=== PATIENT | male | born 1975 | race Caucasian/White ===

== ENCOUNTER → 2017-12-21 | Outpatient (CLI) | payer OTHER ==
--- NOTE | 2017-12-21 10:27 | Diagnostic Imaging Report ---
PROCEDURE: US abdomen complete. TECHNIQUE: Multiple real-time grayscale images were obtained over the abdomen in various projections. INDICATION: Abdominal fullness. FINDINGS: The liver is enlarged at 19.0 cm. No discrete liver mass is detected. The gallbladder is without stones or sludge. No wall thickening or pericholecystic fluid is identified. No biliary ductal dilatation is seen. The pancreas is obscured by bowel gas. Spleen is normal in size. Aorta is nonaneurysmal. IVC is unremarkable. The right and left kidneys are unremarkable. No calculi or hydronephrosis is seen. There is no ascites. IMPRESSION: Mild hepatomegaly. The study is otherwise unremarkable. Dictated by: Dictated on workstation # [id number]
== END ==
LOC: RAD 08:25
PROVIDERS: ATTEND Nurse Practitioner Family
DX: R16.0 Hepatomegaly, not elsewhere classified (principal)
CPT/HCPCS: 76700

== ENCOUNTER → 2020-08-13 | Outpatient (CLI) | payer SELFPAY ==
--- NOTE | 2020-08-13 12:22 | Diagnostic Imaging Report ---
PROCEDURE: US Renal Bilateral. TECHNIQUE: Multiple real-time grayscale images were obtained over the kidneys in various projections bilaterally. INDICATION: Chronic kidney disease, stage G4/A3 COMPARISON: Abdominal ultrasound of 12/21/2017 FINDINGS: Both kidneys are normal in size. The right kidney measures 10 cm in length and the left is 9 cm. The cortical thickness and the cortical medullary differentiation is well maintained. There is no evidence of mass lesion or hydronephrosis. Echogenic non-shadowing 7 mm focus in the upper pole the right kidney may represent a small stone. The urinary bladder is normally filled on prevoid imaging with volume of 98 mL. Post void residual is 1 mL. IMPRESSION: No hydronephrosis or renal atrophy. Dictated by: Dictated on workstation # [id number]
== END ==
LOC: RAD 08:32
PROVIDERS: ATTEND Internal Medicine Nephrology
DX: N18.4 Chronic kidney disease, stage 4 (severe) (principal)
CPT/HCPCS: 76770